=== PATIENT | male | born 1985 | race Two or more races ===

== ENCOUNTER 2018-07-21 21:08 | Emergency (ER) | payer OTHER ==
--- NOTE | 2018-07-21 21:33 | PDOC ---
Rapid Medical Evaluation Time Seen by Provider: 07/21/18 21:29 Medical Evaluation: 07/21/18 21:29 I have performed a brief in-person evaluation of this patient. The patient presents with a chief complaint of:sorethroat with swollen tonsils X 1 day Pertinent physical exam findings:kissing tonsils noted, febrile, no [employer] noted, phonating I have ordered the following:Rapid strep, toradol/dex The patient will proceed to the ED for further evaluation. 07/21/18 21:37 Discharge Disposition - Diagnosis Sorethroat - Referrals - Patient Instructions - Post Discharge Activity
[2018-07-21] MEDS ORDERED: DEXAMETHASONE SOD PHOSPHATE 10 MG/1 ML VIAL IM ONE (21:35)
[2018-07-21] MEDS ORDERED: KETOROLAC TROMETHAMINE 60 MG/2 ML VIAL IM ONE (21:35)
[2018-07-21 21:37] VITALS: BP 122/66; PULSE 105; TEMP 101.6; BMI 27.4
[2018-07-21] MEDS ORDERED: DEXAMETHASONE SOD PHOSPHATE 10 MG/1 ML VIAL ONE (21:39)
[2018-07-21] MEDS ORDERED: KETOROLAC TROMETHAMINE 60 MG/2 ML VIAL ONE (21:39)
--- NOTE | 2018-07-21 22:24 | PDOC ---
History of Present Illness - General Chief Complaint: Sore Throat Stated Complaint: SORE THROAT Time Seen by Provider: 07/21/18 21:29 - History of Present Illness Initial Comments: 33-year-old healthy male without comorbidities presents for evaluation of sore throat times one day. 07/21/18 22:16 Past History - Past Medical History Allergies/Adverse Reactions: Allergies Allergy/AdvReac Type Severity Reaction Status Date / Time No Known Allergies Allergy Verified 07/21/18 21:31 Home Medications: Ambulatory Orders Amoxicillin - [Amoxicillin 875mg Tablet -] 875 mg PO BID #20 tablet 07/21/18 COPD: No DVT: No - Immunization History Immunization Up to Date: Yes - Suicide/Smoking/Psychosocial Hx Smoking History: Never smoked Information on smoking cessation initiated: No Hx Alcohol Use: No Drug/Substance Use Hx: No Substance Use Type: None Review of Systems - Review of Systems Constitutional: Yes: Fever HEENTM: Yes: Throat Pain All Other Systems: Reviewed and Negative *Physical Exam - Vital Signs Last Vital Signs Temp Pulse Resp BP Pulse Ox 101.6 F H 105 H 16 122/66 98 07/21/18 21:31 07/21/18 21:31 07/21/18 21:31 07/21/18 21:31 07/21/18 21:31 - Physical Exam Comments: HEAD: NC/AT EYES: Conjuntiva clear Ears: Canals and TM's normal NOSE: No d/c THROAT: Moist mucous membrances, oral pharanx erythematous with exudate, uvula midline NECK: Supple without adenopathy CARDIAC: S1 S2 LUNGS: CTA Full and Equal breath sounds ABDOMEN: Soft NT ND MS: Full ROM in all joints without edema NEUROLOGIC: No gross sensory or motor deficits, NVID SKIN: Normal color and temperature no lesions or rashes 07/21/18 22:16 ED Treatment Course - Medications Given in the ED: ED Medications Discontinued Medications Generic Name Dose Route Start Last Admin Trade Name Freq PRN Reason Stop Dose Admin Dexamethasone Sodium Phosphate 10 mg 07/21/18 21:35 07/21/18 21:43 Decadron Injection - IM 07/21/18 21:36 10 mg ONCE ONE Administration Ketorolac Tromethamine 60 mg 07/21/18 21:35 07/21/18 21:43 Toradol Injection - IM 07/21/18 21:36 60 mg ONCE ONE Administration Medical Decision Making - Medical Decision Making Based on presentation symptoms and examination I will presumptively treat him for strep throat. 07/21/18 22:16 *DC/Admit/Observation/Transfer Diagnosis at time of Disposition: Nguyễn, Strep pharyngitis - Discharge Dispostion Disposition: HOME Condition at time of disposition: Stable Decision to Admit order: No - Referrals Referrals: Thuan Dickens [Non Staff, Medical] - - Patient Instructions Printed Discharge Instructions: Strep Throat Additional Instructions: Return to the emergency room should symptoms worsen or go unresolved. Please do salt water gargles with warm water 5-6 times a day fever pain. Take the antibiotics as directed. Finished the entire bottle. Follow-up with the primary care physician in 2-3 days for further evaluation and treatment options. - Post Discharge Activity
== END 2018-07-21 22:26 | disposition home or self-care (01) ==
LOC: JERFT 21:08
PROC: 3E023GC Introduction of Other Therapeutic Substance into Muscle, Percutaneous Approach (ICD-10-PCS; principal; 2018-07-21)
PROC: 3E0233Z Introduction of Anti-inflammatory into Muscle, Percutaneous Approach (ICD-10-PCS; 2018-07-21)
DX: J02.0 Streptococcal pharyngitis (principal)
CPT/HCPCS: 87070; 87430; 99281-25; J1100